=== PATIENT | male | born 1955 | race African-American/Black ===

== ENCOUNTER 2017-09-27 08:19 | Day surgery (SDC) | payer OTHER ==
[2017-09-26 09:30] VITALS: BMI 32.6
[2017-09-27] MEDS ORDERED: MIDAZOLAM HCL 2 MG/2 ML SINGLE DOSE VIAL ONE ×2 (11:49→11:50)
[2017-09-27] MEDS ORDERED: LIDOCAINE HCL/PF 2% SDV 5ML VIAL ONE (12:22)
[2017-09-27] MEDS ORDERED: PROPOFOL 20 ML ONE ×2 (12:22)
[2017-09-27] MEDS ORDERED: ROCURONIUM BROMIDE 50 MG/5 ML VIAL ONE ×2 (12:22→13:37)
[2017-09-27] MEDS ORDERED: ceFAZolin SODIUM 1 GM VIAL ONE (12:22)
[2017-09-27] MEDS ORDERED: ceFAZolin SODIUM 1 GM VIAL IVPB ONE (12:39)
[2017-09-27] MEDS ORDERED: fentaNYL CITRATE 250 MCG/5 ML VIAL ONE (12:44)
[2017-09-27] MEDS ORDERED: DEXAMETHASONE SOD PHOSPHATE 4 MG/1 ML VIAL ONE (12:45)
[2017-09-27] MEDS ORDERED: GLYCOPYRROLATE 0.2 MG/1 ML VIAL ONE (14:02)
[2017-09-27] MEDS ORDERED: NEOSTIGMINE METHYLSULFATE 0.5 MG/ML - 10 ML MDV ONE (14:03)
[2017-09-27] MEDS ORDERED: BENZOIN/ALOE VERA/STORAX/TOLU 58 ML BOTTLE ONE (14:13)
[2017-09-27] MEDS ORDERED: LACTATED RINGERS SOLUTION 1,000 ML IV SCH (14:45)
--- NOTE | 2017-09-27 14:49 | OP ---
Operative Note - Note: Operative Date: 09/27/17 Pre-Operative Diagnosis: 1. Left shoulder impingement syndrome. 2. Left rotator cuff tear Operation: Open: 1. Distal claviculectomy (Teresa procedure). 2. Acromioplasty (Neer decompression). 3. Sub-acromial bursectomy. 4. Rotator cuff repair Findings: 1. Sub-acromial impingement 2. Rotator cuff tear Post-Operative Diagnosis: Same as Pre-op Surgeon: Vinod Akers Broadcast Meteorologist: Gregory Akers Anesthesia: General Estimated Blood Loss (mls): 75 Operative Report Dictated: Yes
--- NOTE | 2017-09-27 14:52 | PN ---
Progress Note (short form) - Note Progress Note: 62M s/p open left shoulder sub-acromial decompression & rotator cuff repair. -Strict NWB LUE. -LUE sling. -Begin daily L elbow, wrist and hand ROM (WITH NO SHOULDER ROM) POD #1. -Incentive spirometry. -Keep dressing on until clinic visit next week; OK to shower with dressing on. -f/u [facility] ([place] office) 10/03/2017 for wound check. -Percocet ordered to patient's pharmacy.
[2017-09-27] MEDS ORDERED: ONDANSETRON 4 MG/2 ML VIAL IVPUSH PRN (16:44)
[2017-09-27] MEDS ORDERED: oxyCODONE HCL 5 MG TABLET PO PRN (16:45)
[2017-09-27] MEDS ORDERED: metFORMIN HCL 500 MG TABLET (FP) PO SCH (17:00)
[2017-09-27 17:22] VITALS: TEMP 97.9
[2017-09-27 21:19] VITALS: BP 140/78; PULSE 88
[2017-09-27] MEDS ORDERED: ATORVASTATIN CA 10 MG TABLET (FP) PO SCH (22:00)
[2017-09-27] MEDS ORDERED: LOSARTAN POTASSIUM 25 MG TABLET PO SCH (22:00)
[2017-09-28] MEDS ORDERED: HYDROCHLOROTHIAZIDE 12.5 MG CAPSULE (FP) PO SCH (10:00)
[2017-09-28] MEDS ORDERED: ASPIRIN COATED 81 MG TABLET.EC PO SCH (10:00)
--- NOTE | 2017-09-30 02:31 | OP ---
DATE OF OPERATION: 09/27/2017 SURGEON: Vinod Akers MD HIGH SPEED WARPER TENDER: Gregory Akers MD PREOPERATIVE DIAGNOSES: 1. Left shoulder impingement syndrome. 2. Left rotator cuff tear. POSTOPERATIVE DIAGNOSES: 1. Left shoulder impingement syndrome. 2. Left rotator cuff tear. SURGICAL PROCEDURE: 1. Distal claviculectomy (Teresa procedure). 2. Acromioplasty (near decompression). 3. Open rotator cuff repair. ANESTHESIA: 1. General. 2. Scalene block. POSITION: Beach chair. INCISION: Anterior. ESTIMATED BLOOD LOSS: 50 mL. INTRAVENOUS FLUIDS: See Anesthesia Record. SPECIMENS: Distal clavicle and near surface of the acromion. DRAINS: None. COMPLICATIONS: None. URINE OUTPUT: None. BACTERIOLOGY: None. TRANSFUSIONS: None. CLOSURE: Number 1 and 2-0 Vicryl with 3-0 Monocryl. INDICATIONS: The patient is a 62-year-old male who is indicated for a left shoulder decompression and rotator cuff repair in order to facilitate improved motion and mobilization and to prevent complications associated with disuse of the left upper extremity. Patient was identified in the holding area by his arm band. A long discussion was held with the patient in the presence of his , outlining the risks, benefits, and alternatives of the above named procedure. Risks include, but are not limited to pain, bleeding, infection, damage to surrounding structures (including nerves, blood vessels, skin, ligaments, tendons, and bone), wound complications, need for further surgery, blood clots, myocardial infarction, pulmonary embolism, anesthesia complications, compartment syndrome, limb loss, limp, loss of function, and . The benefits were as mentioned above. Alternatives include no surgery. All questions were answered. The patient and his understood and agreed to the procedure. Informed consent was obtained, witnessed, and verified. The patient's preoperative limb, the left upper extremity, was marked. The patient was taken to the operating room after being seen by the nursing and anesthesia staff. PROCEDURE: The patient was brought into the operating room, placed on the OR table, and secured with a safety strap. Consent and the operative site were again verified with the patient, nursing, and anesthesia staff. Anesthesia was then administered without complications including intravenous antibiosis. A timeout was done, led by me, the attending surgeon. The patient was positioned with bony prominences well-padded in the beach chair position. The operative site was then prepped and draped in the standard sterile fashion. A timeout was done and the case began. Standard open approach to this particular procedure was made into the left shoulder. The incision drawn from the coracoid to the anterolateral aspect of the acromion was made using a 15-blade. Dissection was carried through skin, down into the subcutaneous tissues, onto the distal aspect of the clavicle. Once the superior surface of the clavicle as it moved towards the AC joint was exposed, a 15-blade was marched along the distal clavicle until falling into the AC joint itself. With the AC joint identified in location, a capsulotomy was performed and 2 sharp Homans were placed around the distal clavicle with 1st on the posterior aspect and the 2nd from the anterior aspect, effectively lifting the distal clavicle upwards. Next, an oscillating saw was used to perform a beveled cut as part of the 1-cm distal claviculectomy. The bony osteotomy fragment was then removed using a Maylin as well as electrocautery. Next, a finger was used to try and palpate the subacromial space; however, the thickness of the acromion was such that there was no room at all for the finger between the two. The inferior acromial margin was abutting the rotator cuff with very minimal subacromial space. Next, a blunt Maxx was introduced underneath the acromion and was used to actually create some separation within the subacromial space between the acromion and the humeral head. Gentle distalizing traction was applied to the left upper extremity to help achieve this. Next, again the oscillating saw was used to perform undercutting acromioplasty of about half the thickness of the acromion. The osteotomized fragment was again excised using a combination of rongeur, Maylin clamps, and electrocautery. Next, the shoulder was taken through a range of motion and with the shoulder forward flexed to about 90 degrees and internally rotated the greater tuberosity of the humerus was brought into plain site. An obvious large insertional rotator cuff tear was observed. The 15-blade was used to trim approximately 2 mm of tissue off of each of the ends of the tear, so as to produce a healthy, bleeding, soft tissue surface with maximum healing potential. Next, four number 1 Vicryl sutures were placed in simple interrupted fashion into the rotator cuff so as to repair the tear. An excellent repair was performed to great satisfaction. The shoulder was then taken through a full range of motion and no further tear was identified. It should be noted that after the distal claviculectomy was performed, the coracoacromial ligament was incised in line with the fibers of the deltoid muscle. The deltoid was then also split in line with its fibers anteriorly off of the anterior margin of the AC joint. This enabled access into the subacromial space. At this point, copious irrigation was performed. Hemostasis was assured. The wound was closed primarily using number 1 and 2-0 Vicryl sutures along with 3 subcuticular 3-0 Monocryl sutures. A sterile compressive dressing was applied. The sponge and needle counts were correct at the end of the case. I, the attending, was present and scrubbed throughout the entire case. The patient was then extubated by the anesthesia staff without evidence of complications and was then transferred to the recovery room in stable condition, having tolerated the procedure well. MD AYAKA Bey/[id number]
--- NOTE | 2017-10-02 15:47 | PATH ---
Surgical Pathology Report Patient Name: DELICIA ROBERT Med. Rec. #: [id number] /Age/Gender: 1955 (Age: 62) / M Account: [id number] Location: [facility] SURGICAL Taken: 09/27/2017 Received: 09/30/2017 Reported: 10/02/2017 Physicians: Vinod Akers M.D. Specimen(s) Received BONE, CLAVICAL Clinical History Complex rotator cuff tear left shoulder Final Diagnosis SHOULDER BONE, CLAVICLE, LEFT, CLAVICULECTOMY: CARTILAGE-CAPPED BONE WITH NO SIGNIFICANT PATHOLOGIC FINDINGS. Electronically Signed Lee Ann Friend M.D. Gross Description Received in formalin labeled "left shoulder bone clavicle," is a 3.0 x 2.3 x 1.2 cm lynch, irregular portion of bone. A medical representative section is submitted in one cassette, following decalcification. 09/30/201709/30/2017
== END 2017-09-27 19:00 | disposition home or self-care (01) ==
LOC: JASU-SURG 08:19
PROVIDERS: ATTEND Orthopaedic Surgery Adult Reconstructive Orthopaedic Surgery
PROC: 0LQ20ZZ Repair Left Shoulder Tendon, Open Approach (ICD-10-PCS; 2017-09-27)
PROC: 0PBB0ZZ Excision of Left Clavicle, Open Approach (ICD-10-PCS; principal; 2017-09-27 14:30)
DX: M75.42 Impingement syndrome of left shoulder (principal); M75.102 Unspecified rotator cuff tear or rupture of left shoulder, not specified as traumatic; E66.9 Obesity, unspecified; E11.9 Type 2 diabetes mellitus without complications
CPT/HCPCS: 88304-TC; 88311-TC